=== PATIENT | female | born 1960 | race Caucasian/White ===

== ENCOUNTER 2020-04-25 13:44 | Outpatient (CLI) | payer OTHER | END 2020-04-25 23:59 | disposition home or self-care (01) | LOC: CFH 13:44 | PROVIDERS: ATTEND Internal Medicine | DX: Z12.31 Encounter for screening mammogram for malignant neoplasm of breast (principal) | CPT/HCPCS: 77067 ==

== ENCOUNTER 2021-05-07 10:53 | Outpatient (CLI) | payer OTHER | END 2021-05-07 23:59 | disposition home or self-care (01) | LOC: CFH 10:53 | PROVIDERS: ATTEND Internal Medicine | DX: Z12.31 Encounter for screening mammogram for malignant neoplasm of breast (principal) | CPT/HCPCS: 77067 ==